=== PATIENT | female | born 1960 | race Hispanic/Latino ===

== ENCOUNTER 2017-08-04 09:15 | Day surgery (SDC) | payer MEDICAID ==
[~2017-08-04] VITALS: Ht 160 cm; Wt 65.3 kg
[~2017-08-04 09:15] MED LIST: MELO-106 PO; METF500T6 PO; SODIUM CHLORIDE 0.9% 1000ML 1,000 ML IV ONE
[2017-08-04 10:00] VITALS: BP 155/89
[2017-08-04] MEDS ORDERED: MEPERIDINE-PF 50 MG/ML SYG ONE (11:41)
[2017-08-04] MEDS ORDERED: MIDAZOLAM HCL 1 MG/ML 2ML VIAL ONE (11:41)
== END 2017-08-04 12:44 ==
LOC: DAH 09:15
PROVIDERS: ATTEND Internal Medicine Gastroenterology
DX: K59.00 Constipation, unspecified (principal); E11.9 Type 2 diabetes mellitus without complications; M19.90 Unspecified osteoarthritis, unspecified site; Z83.3 Family history of diabetes mellitus
CPT/HCPCS: 45378; 82948 ×2; A4606; J2175; J2250; J7030; 99152; 99153